=== PATIENT | female | born 1945 | race Caucasian/White ===

== ENCOUNTER 2018-06-13 13:18 | Outpatient (CLI) | payer MEDICARE ==
--- NOTE | 2018-06-13 14:59 | BD ---
BONE DENSITOMETRY USING DEXA: Date: 06/13/18 HISTORY: Postmenopausal screening for osteoporosis. FINDINGS: Lumbar Spine: BMD (g/cm2) L1 0.848 T-Score: -1.3 Z-Score: 0.7 L2 0.895 T-Score: -1.2 Z-Score: 1.0 L3 0.999 T-Score: -0.8 Z-Score: 1.5 L4 1.031 T-Score: -0.3 Z-Score: 2.1 L1-L4 0.948 T-Score: -0.9 Z-Score: 1.3 Femoral Neck: 0.695 T-Score: -1.4 Z-Score: 0.5 Total Femur: 0.971 T-Score: 0.2 Z-Score: 1.8 The 10 year fracture risk for a major osteoporotic fracture is 9.9% and for a hip fracture is 1.5%. IMPRESSION: Osteopenia. POS: C
--- NOTE | 2018-06-16 08:58 | MMO ---
FILMS COMPARED: The present examination has been compared to prior imaging studies performed at [facility] on 04/13/2006, and at [facility] on 02/07/2003 and 02/22/2004. MAMMOGRAM FINDINGS: The breasts are heterogeneously dense, which could obscure a lesion on mammography. Finding 1: There are multiple round masses of varying size with circumscribed margins seen in both breasts. Finding 2: There are benign appearing calcifications seen in both breasts. There are no suspicious masses, calcifications or areas of architectural distortion. IMPRESSION: ALL ABOVE FINDINGS ARE BENIGN. A ROUTINE FOLLOW-UP MAMMOGRAM IN 1 YEAR IS RECOMMENDED. ACR BI-RADS Category 2 - Benign finding
== END 2018-06-13 13:19 | disposition home or self-care (01) ==
LOC: BICMAMMO 13:18
PROVIDERS: ATTEND Internal Medicine
DX: Z12.31 Encounter for screening mammogram for malignant neoplasm of breast (principal); M85.89 Other specified disorders of bone density and structure, multiple sites
CPT/HCPCS: 77063; 77067; 77080